=== PATIENT | female | born 1940 | race Caucasian/White ===

== ENCOUNTER 2016-10-27 16:36 | Emergency (ER) | payer OTHER ==
[2016-10-27 16:48] VITALS: O2SAT 95
--- NOTE | 2016-10-27 18:02 | EDPHY ---
H & P Stated Complaint: Slipped and fell;hit face on concrete;no LOC;lac nose, contusion forehead Time Seen by Provider: 10/27/16 18:01 HPI/ROS: Chief complaint: Mechanical fall with head injury History of present illness: This is a 76-year-old female who presents to the emergency department after sustaining a mechanical fall at home injuring her head. Patient tripped over some typing on the floor of her garage. She fell forward and struck her face against the ground. She sustained a small laceration to her nose. There is no loss of consciousness. Mild discomfort in the head and neck since then. No report of trauma to other parts of the body including the chest, abdomen, pelvis or extremities. No neurologic symptoms such as paresthesias, weakness or paralysis or bowel or bladder dysfunction. She is not sure if her tetanus is up-to-date. Review of systems: A 10 point review of systems was obtained and other than described above was negative - Personal History Current Tetanus Diphtheria and Acellular Pertussis (TDAP): Unsure - Medical/Surgical History Other PMH: HTN. GERD - Social History Smoking Status: Former smoker - Physical Exam Exam: General Appearance: Alert, nontoxic Eyes: PERRLA Respiratory: Lungs clear to auscultation bilaterally Cardiac: Regular rate and rhythm. Gastrointestinal: Bowel sounds normal. Abdomen soft, nondistended, nontender to palpation. Neurological: Alert and oriented x4. Cranial nerves 2-12 grossly intact. Strength and sensation intact and symmetrical. Ambulating well. Skin: 0.5 cm laceration that approximates the left side of the nose. Musculoskeletal: The face is nontender without crepitus or bony deformity. The rest of the head is nontender without crepitus or bony deformity. Spine is nontender without crepitus, bony deformity or step-off. Chest wall intact palpation. Patient moving all extremities without difficulty. Constitutional: Initial Vital Signs Temperature (C) 36.5 C 10/27/16 16:44 Heart Rate 58 L 10/27/16 16:44 Respiratory Rate 48 H 10/27/16 16:44 Blood Pressure 135/84 H 10/27/16 16:44 O2 Sat (%) 95 10/27/16 16:44 O2 Delivery Mode Room Air Allergies/Adverse Reactions: No Known Allergies Allergy (Unverified 10/27/16 16:42) Home Medications: Medication Instructions Recorded Aspirin [Aspirin 81mg (*)] 81 mg PO DAILY 10/27/16 Citalopram [CeleXA] 20 mg PO 10/27/16 Losartan Potassium [Cozaar 25 mg 25 mg PO 10/27/16 (*)] Norvasc 10 mg (*) 10/27/16 Omeprazole [Prilosec 20 mg] 20 mg PO DAILY 10/27/16 Medical Decision Making - Diagnostics Imaging Results: Imaging Impressions Cervical Spine CT 10/27/16 18:06 Impression: Negative noncontrast CT of the cervical spine for acute traumatic injury. 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 Degenerative changes. Results called to Shukri Coe PA-C, at 6:[address] 10/27/16 18:06 Impression: Normal noncontrast CT of the brain. Results called to. Shukri Coe PA-C at the time of the interpretation. Imaging: Discussed imaging studies w/ call center consultant Radiologist ED Course/Re-evaluation: Patient seen under the supervision of my secondary supervising physician Dr. Marcello Henao. Patient presents to the emergency department after a trip and fall injuring her head. She is nontoxic. She has a slight laceration to the nose that approximates well. It is cleaned and Steri-Strips placed over it. The imaging studies of the head and neck are negative. By history and physical exam no evidence of trauma to other parts of the body. She is not sure if her tetanus shot is up-to-date, she is asked to contact her primary care doctor to find out and if not get 1 within 3 days. Home care is discussed. This includes head injury precautions. Return precautions are given. Patient voiced understanding and agreement with plan. Differential Diagnosis: Included but not limited to soft tissue injury, bony fracture, intracranial injury, spinal cord injury Departure - Departure Disposition: Home, Routine, Self-Care Clinical Impression: Head injury Qualifiers: Encounter type: initial encounter Qualified Code(s): S09.90XA - Unspecified injury of head, initial encounter Nasal laceration Qualifiers: Encounter type: initial encounter Qualified Code(s): S01.21XA - Laceration without foreign body of nose, initial encounter Condition: Good Instructions: Head Injury (ED), Acute Wounds (ED) Additional Instructions: Follow-up with her primary care doctor this week for recheck Please follow-up with your primary care doctor to see if your tetanus is up-to- date, if it is not we request that you get up-to-date within 10 days If symptoms worsen or new symptoms develop return to the emergency room for recheck Referrals: SHUKRI CAMARGO [Primary Care Provider] - As per Instructions
[2016-10-27 18:52] VITALS: BP 133/67; PULSE 65; RESP 20; TEMP 97.9
== END 2016-10-27 18:56 | disposition home or self-care (01) ==
DX: S01.21XA Laceration without foreign body of nose, initial encounter (principal); S09.90XA Unspecified injury of head, initial encounter; I10 Essential (primary) hypertension; Z79.82 Long term (current) use of aspirin; Z87.891 Personal history of nicotine dependence; W01.10XA Fall on same level from slipping, tripping and stumbling with subsequent striking against unspecified object, initial encounter; Y92.009 Unspecified place in unspecified non-institutional (private) residence as the place of occurrence of the external cause; Y99.8 Other external cause status

== ENCOUNTER 2017-08-24 08:56 | Emergency (ER) | payer OTHER ==
--- NOTE | 2017-08-24 09:16 | EDPHY ---
H & P Stated Complaint: Injury to right pinky finger 10 days ago, increasingly painful. Source: Patient Exam Limitations: No limitations - Personal History Current Tetanus Diphtheria and Acellular Pertussis (TDAP): Yes - Medical/Surgical History Hx Asthma: No Hx Chronic Respiratory Disease: No Hx Diabetes: No Hx Cardiac Disease: No Hx Renal Disease: No Hx Cirrhosis: No Hx Alcoholism: No Hx HIV/AIDS: No Hx Splenectomy or Spleen Trauma: No Other PMH: HTN. GERD - Social History Smoking Status: Former smoker Time Seen by Provider: 08/24/17 09:11 HPI/ROS: HPI: This is a 77-year-old female who presents with Chief Complaint: Injury to right pinky finger 10 days ago, increasingly painful. Location: Right pinky Quality: Decreased range of motion Duration: 10 days Signs and Symptoms: No bleeding, no radiation, no numbness, no weakness, no tingling, no incontinence, + decreased range of motion, +swelling, + pain, no fever Timing: Acute, constant Severity: [id number] Context: Patient is right-hand dominant, presents with complaints of her right pinky-"middle joint" having decreased range of motion, swelling, mild pain that is worsened with touching the area. Patient reports that she was caring a large pot approximately 10 days ago when she accidentally tripped and fell directly on her right hand. She believes that her right pinky took the majority of the blunt force as she hit the kitchen floor. She does not believe that she hyperextended and denies any deformity at the time. She reports that she felt in, constant, severe nonradiating pain. Several hours later the pain slowly started to decrease. Patient is concerned that she may have injured her tendon or broken the finger as she is unable to extended in the"middle joint." She denies any paresthesias. Denies LOC/head injury/neck pain/dizziness/nausea/ vomiting/amnesia. Modifying Factors: None Comment: ROS: see HPI Constitutional: No fever, no chills, no weight loss Eyes: No blurred vision Respiratory: No shortness of breath, no cough Cardiovascular: No chest pain Gastrointestinal: No nausea, no vomiting no diarrhea Genitourinary: No dysuria Extremities: No myalgias Neurologic: No weakness, no numbness Skin: No rashes Hematologic: No bruising, no bleeding MEDICAL/SURGICAL/SOCIAL HISTORY: Medical history: Hypertension, gastroesophageal reflux disease Surgical history: Denies Social history: Retired. CONSTITUTIONAL: Extremely pleasant elderly white female, awake and alert, no obvious distress HEENT: Atraumatic and normocephalic. Cardiovascular: Normal S1/S2, regular rate, regular rhythm, without murmur rub or gallop. PULMONARY/CHEST: Symmetrical and nontender. no crepitus. Clear to auscultation bilaterally. Good air movement. No accessory muscle usage. ABDOMEN: Soft, nondistended, nontender, no ecchymosis. EXTREMITIES: 2/2 pulses, strength 5/5, right 5th digit PIP shows mild swelling and bruising; extension is not intact. Flexion is approximately 10. DIP/MCP flexion/extension intact with good light touch sensation. no deformities, no clubbing, no cyanosis or edema. NEUROLOGICAL: no focal neuro deficits. GCS 15. Light touch sensation intact. SKIN: Warm and dry, no erythema. no rash. Good capillary refill. (Linsey Morrissey) Constitutional: Initial Vital Signs Temperature (C) 36.6 C 08/24/17 08:57 Heart Rate 63 08/24/17 08:57 Respiratory Rate 16 08/24/17 08:57 Blood Pressure 142/103 H 08/24/17 08:57 O2 Sat (%) 96 08/24/17 08:57 O2 Delivery Mode Room Air Allergies/Adverse Reactions: No Known Allergies Allergy (Unverified 10/27/16 16:42) Home Medications: Medication Instructions Recorded Aspirin [Aspirin 81mg (*)] 81 mg PO DAILY 10/27/16 Citalopram [CeleXA] 20 mg PO 10/27/16 Losartan Potassium [Cozaar 25 mg 25 mg PO 10/27/16 (*)] Norvasc 10 mg (*) 10/27/16 Omeprazole [Prilosec 20 mg] 20 mg PO DAILY 10/27/16 Medical Decision Making - Diagnostics Imaging Results: Imaging Impressions Finger X-Ray 08/24/17 09:09 impression: Mid shaft proximal phalangeal fracture. ED Course/Re-evaluation: X-ray via PAC shows proximal minimally displaced fracture No signs of neurovascular compromise/tenting of skin/compartment syndrome/ extremities and joints examined above and below area of concern and are neurovascularly intact. Patient was made of where that there is a phalanx fracture as well as concern for extensor tendon injury. Placed in finger splint, Ortho-Hand follow-up This patient was seen under the supervision of my secondary supervising physician. I evaluated care for this patient independently. (Linsey Morrissey) Differential Diagnosis: Differential diagnosis includes but is not limited to phalanx fracture, finger dislocation, tendon injury, tendon rupture, nerve injury. (Linsey Morrissey) Other Provider: PHYSICIAN DOCUMENTATION: The patient was evaluated and managed by the Physician Senior Catering Sales Manager. My co- signature indicates that I have reviewed this chart and I agree with the findings and plan of care as documented. I am the secondary supervising physician. (Damon Dickey) Departure - Departure Disposition: Home, Routine, Self-Care Clinical Impression: Fracture of phalanx of right hand, closed Qualifiers: Encounter type: initial encounter Finger: little finger Phalanx: proximal Fracture alignment: nondisplaced Qualified Code(s): S62.646A - Nondisplaced fracture of proximal phalanx of right little finger, initial encounter for closed fracture Injury of extensor tendon of right hand Qualifiers: Encounter type: initial encounter Qualified Code(s): S66.901A - Unspecified injury of unspecified muscle, fascia and tendon at wrist and hand level, right hand, initial encounter Condition: Good Instructions: Finger Sprain (ED), Tendon Rupture (ED) Additional Instructions: Wear the finger splint until seen by orthopedics. Take Tylenol 650 mg every 4 hours and/or Ibuprofen 600 mg every 8 hours with food as needed for pain. Follow up with Orthopedics in 7-10 days at which time they will evaluate and recommend with you if conservative management versus surgery is indicated. Return to the ER immediately if you experience new or worsening pain, discoloration, numbness, tingling, or any other symptoms that concern you. Referrals: YAZMIN CAMARGO [Primary Care Provider] - As per Instructions Emili Aldridge MD [Medical Doctor] - As per Instructions
[2017-08-24 09:52] VITALS: BP 181/84
== END 2017-08-24 09:51 | disposition home or self-care (01) ==
DX: S62.646A Nondisplaced fracture of proximal phalanx of right little finger, initial encounter for closed fracture (principal); S66.901A Unspecified injury of unspecified muscle, fascia and tendon at wrist and hand level, right hand, initial encounter; I10 Essential (primary) hypertension; Z87.891 Personal history of nicotine dependence; Z79.82 Long term (current) use of aspirin; W20.8XXA Other cause of strike by thrown, projected or falling object, initial encounter; Y92.000 Kitchen of unspecified non-institutional (private) residence as the place of occurrence of the external cause; Y99.8 Other external cause status; Y93.89 Activity, other specified
CPT/HCPCS: 73140; 99283; L3925